=== PATIENT | male | born 1985 | race Caucasian/White ===

== ENCOUNTER 2021-04-05 00:03 | Emergency (ER) | payer OTHER ==
[~2021-04-05] VITALS: Ht 175.3 cm; Wt 80.3 kg
[2021-04-05] MEDS ORDERED: FIBER350 GM PO (00:51)
--- NOTE | 2021-04-06 19:02 | EKG ---
[facility] [address] [facility] [place], [place] [address] Signed Normal sinus rhythm Normal ECG No previous ECGs available Confirmed by AUREA MÉNDEZ MD ([id number]) on 04/06/2021 7:02:10 PM Electronically Signed By: AUREA MÉNDEZ MD 04/06/21 190 PATIENT NAME: KHARI PLEITEZ Electrocardiogram DATE OF : 89 PHYSICIAN: AUREA MÉNDEZ MD REPORT #: [id number] REPORT IS CONFIDENTIAL AND NOT TO BE RELEASED WITHOUT AUTHORIZATION
== END 2021-04-05 01:34 | disposition home or self-care (01) ==
LOC: ED 00:03
DX: I83.91 Asymptomatic varicose veins of right lower extremity (principal); Z88.8 Allergy status to other drugs, medicaments and biological substances; Z79.899 Other long term (current) drug therapy
CPT/HCPCS: 93005; 93010; 93971; 99284-25; A9270